=== PATIENT | female | born 1980 | race Caucasian/White ===

== ENCOUNTER → 2021-08-08 10:15 | Outpatient (CLI) | payer OTHER, SELFPAY ==
[2021-08-08 12:11] LABS: Lithium 0.4 mmol/L (0.6-1.2)
[2021-08-08 12:20] LABS: Alanine Aminotransferase 19 IU/L (<35); Albumin 4.5 g/dL (3.5-5.0); Albumin Globulin Ratio 1.5 (1.0-2.8); Alkaline Phosphatase 50 U/L (38-126); Aspartate Aminotransferase 25 IU/L (14-36); BUN Creatinine Ratio 11.1 (6-22); Bilirubin Total 0.4 mg/dL (0.2-1.3); Blood Urea Nitrogen 10 mg/dL (7-17); Carbon Dioxide 27 mmol/L (22-32); Chloride 105 mmol/L (98-107); Estimated Glomerular Filt Rate > 60.0 mL/min (>60); Globulin 3.1 g/dL (1.7-4.1); Glucose 91 mg/dL (70-100); HEMOLYSIS < 15 (0-50); Potassium 4.6 mmol/L (3.4-5.1); Sodium 137 mmol/L (137-145); Total Protein 7.6 g/dL (6.3-8.2)
== END ==
PROVIDERS: Referring Provider Psychiatry & Neurology Psychiatry; Visit Provider Psychiatry & Neurology Psychiatry
DX: F31.81 Bipolar II disorder (principal); F50.2 Bulimia nervosa; Z79.899 Other long term (current) drug therapy
CPT/HCPCS: 36415; 80053; 80178

== ENCOUNTER → 2021-10-17 12:06 | Outpatient (CLI) | payer OTHER, SELFPAY ==
[2021-10-17 14:03] LABS: Lithium 0.6 mmol/L (0.6-1.2)
== END ==
PROVIDERS: PCP Student in an Organized Health Care Education/Training Program; Referring Provider Psychiatry & Neurology Psychiatry; Visit Provider Psychiatry & Neurology Psychiatry
DX: F31.81 Bipolar II disorder (principal)
CPT/HCPCS: 36415; 80178

== ENCOUNTER → 2021-11-01 13:07 | Outpatient (CLI) | payer OTHER, SELFPAY ==
[2021-11-02 13:12] LABS: COVID19 -Nasal RAPID Negative (Negative)
== END ==
PROVIDERS: PCP Student in an Organized Health Care Education/Training Program; Visit Provider Obstetrics & Gynecology
DX: Z20.822 Contact with and (suspected) exposure to COVID-19 (principal)
CPT/HCPCS: 87635

== ENCOUNTER 2021-11-02 06:52 | Day surgery (SDC) | payer OTHER, SELFPAY ==
[2021-10-30 12:37] VITALS: BMI 32.9
[2021-11-02] VITALS (8 sets, daily range): BP systolic 106–121; BP diastolic 60–81; PULSE 65–84; RESP 12–16; TEMP 36.1–36.7; O2SAT 100; BMI 32.9
--- NOTE | 2021-11-02 | PATH_ITS ---
[facility] Accession Number: [id number] . 01 Material submitted: . PART A: endocervix - ENDOCERVICAL CURETTINGS PART B: endometrium - ENDOMETRIAL CURETTINGS . 02 Diagnosis: A. Endocervical Curettings: Portions of lower uterine segment / proliferative endometrium; negative for glandular hyperplasia, cytologic atypia, or malignancy. Small fragments of endocervical tissue; negative for glandular dysplasia or malignancy. . B. Endometrial Curettings: Portions of proliferative endometrium; negative for glandular hyperplasia, cytologic atypia, or malignancy. Some endometrial fragments demonstrate prominent vessels, suggestive of polyp, if clinical and imaging studies are concordant. [facility] 11/06/2021 1510 Local . 02 Electronically signed: . Nicole Dowling MD, Pathologist NPI- [id number] . 01 Gross description: . A. Received in formalin, labeled with patient's name, and endocervical curettings consists of multiple fragments of whaley to red-brown soft tissue admixed with mucoid material aggregating to 2.8 x 1.9 x 0.2 cm. The specimen is filtered into a biopsy bag and submitted entirely in cassette A1. B. Received in formalin, labeled with the patient's name, and endometrial curettings consists of multiple whaley to red-brown soft tissue fragments aggregating to 2.4 x 2.1 x 0.4 cm. The specimen is filtered into a biopsy bag and submitted entirely in cassette B1. ([id number]) /MRV 11/05/2021 1358 Local . 02 Pathologist provided ICD-10: N92.0 . 02 CPT . 221726, 593906 Specimen Comment: A courtesy copy of this report has been sent to [phone] Performed at: 01 [facility] [address] [place] [address], [place], [place] [id number] MD Jeffrey Garcia MD Phone: [phone] Performed at: 02 [facility] [address] [place], [place] [id number] MD Eliza Ng MD Phone: [phone]
[2021-11-02] MEDS: LACTATED RINGERS 1,000 ML 42 ML IV (07:33)
--- NOTE | 2021-11-02 07:38 | PM.PREOP ---
Pre-operative Note COVID-19 COVID-19 status: Negative Result date/Date tested (Pos, Neg/Pending): 11/02/21 Criteria for continued procedure: Non-surgical alternatives not available or appropriate per current SOC Interval Note History & Physical reviewed/Exam performed by Physician: Yes Changes to H&P: No
[2021-11-02] MEDS: ACETAMINOPHEN 325 MG TABLET 975 MG PO (07:39)
--- NOTE | 2021-11-02 07:40 | P.OP_ITS ---
Operative Date/Time/Diagnoses Date of procedure: 11/02/21 Time of procedure: 08:00 Post-op diagnosis: same Procedure & Clinicians Procedure: Procedures Operation Date: 11/02/21 07:45 Actual Procedure Side Surgeon p Hysteroscopy w/ poss. BX's, D&C, Endometrial Ablation (Novasure) Baldomero Evangelista MD Indications: Ivelisse is a 40-year-old A2, LMP August 29, 2021 who presents with a greater than 5 year history of progressively severe and painful periods.? Her periods typically last at least 5-7 days, are associated with flooding and accidents both during the day and at night, and require use of both tampons and nighttime pads during the daytime to minimize these episodes of overflows.? Treatment with naproxen has not been of any benefit.? Treatment with oral contraceptives x2 months was poorly tolerated due to exacerbation of her bipolar symptoms while on combination OCs.? Patient has declined use of a IUD in the past has no interest in a trial of progestin secreting IUD.? Contraception is by vasectomy performed January 2021.? Patient's last Pap was 2 or 3 weeks ago and she has been diagnosed with HPV based on her most recent Pap.? Patient was originally worked up for possible ablation in 2019 while they were living in [place] with endometrial biopsy at that time showing only secretory endometrium and pelvic ultrasound in 2018 showed a normal uterus, normal endometrial stripe, and normal adnexa.? A repeat ultrasound performed at [facility] on 08/22/2021 is also unremarkable with an endometrial stripe of 10 mm.? Pap smear performed in July 2021 is negative for cytologic abnormality but is positive for high-risk HPV.? After consideration of all options the patient has decided to proceed with performance of hysteroscopy with possible biopsies, dilation and curettage of the uterus, and endometrial ablation (NovaSure).? Patient presents today for her scheduled surgery. Surgeon: Baldomero Evangelista Anesthesia Type: General Operative Notes Findings: Normal endometrial cavity. Closure Type: not applicable Specimen(s): endometrial curettings and other (Endocervical curettings) Estimated blood loss (mL): 5 Blood products transfused: none Procedure in detail: With the patient under general LMA in the modified dorsal lithotomy position, the perineum, vagina, and lower abdomen were prepped and draped in the usual fashion for hysteroscopy with endometrial ablation. A pre-surgical safety time- out was then taken in accordance with [facility] Main OR protocols. A bivalve speculum was inserted in the vagina and the cervix visualized. The anterior lip of the cervix was grasped with a single-tooth tenaculum and the endocervical canal was then dilated to 6 mm diameter. Hysteroscope was placed through the endocervical canal into the endometrial cavity and the cavity was visualized. There were no localized abnormalities within the endometrial cavity and the endometrium itself was unremarkable. Both tubal ostia were visualized. The hysteroscope was then withdrawn and a fractional dilation and curettage was accomplished with separate pathologic specimen submitted for the endometrial and endocervical curettings. The uterine cavity was then sounded with the NovaSure device and found to be 6.0 cm in depth. The NovaSure device was then inserted through the endocervical canal into the endometrial cavity and the width of the cavity determined to be 4.7 cm. Cavity integrity test demonstrated the cavity to be intact and ablation was initiated. Ablation time was 60 seconds with power utilized 158 w. The NovaSure device was then removed from the endometrial cavity and hysteroscopy demonstrated excellent ablation effect. The tenaculum was then removed from the anterior lip of the cervix and no bleeding was encountered. The speculum was then removed from the vagina and the patient awakened from anesthesia. She was then transferred to the PACU for a period of observation and recovery having tolerated the procedure well. Complications: none Post-operative Condition: stable Disposition: PACU Plan for aftercare: Routine post-op care.
[2021-11-02] MEDS: APREPITANT 40 MG CAPSULE PO (07:49)
--- NOTE | 2021-11-02 07:57 | SUR.OPER ---
Lithotomy on padded OR bed, head on pillow, arms secured on padded arm boards at <90 degrees abduction. Legs secured in padded yellow fins stirrups.
[2021-11-02] MEDS: fentaNYL 100 MCG/2 ML INJ IV (08:44)
[2021-11-02] MEDS: KETOROLAC 30 MG/ML VIAL IV (08:46)
[2021-11-02] MEDS: HYDROMORPHONE 2 MG INJ IV (08:49)
[2021-11-02] MEDS: OXYCODONE IR 5 MG TABLET PO (08:57)
== END 2021-11-02 09:29 | disposition home or self-care (01) ==
PROVIDERS: PCP Student in an Organized Health Care Education/Training Program; Referring Provider Obstetrics & Gynecology; Visit Provider Obstetrics & Gynecology
PROC: 0U5B8ZZ Destruction of Endometrium, Via Natural or Artificial Opening Endoscopic (ICD-10-PCS; CPT 58563; principal; 2021-11-02 07:45)
DX: N94.6 Dysmenorrhea, unspecified (principal); N92.0 Excessive and frequent menstruation with regular cycle
CPT/HCPCS: 58563; 81025; J1100; J1170; J1885; J2250; J2405; J2704; J3010; J8501

== ENCOUNTER → 2022-01-11 11:44 | Outpatient (CLI) | payer OTHER, SELFPAY ==
[2022-01-11 12:54] LABS: COVID19 -Nasal RAPID Negative (Negative)
== END ==
PROVIDERS: PCP Student in an Organized Health Care Education/Training Program; Visit Provider Surgery
DX: Z01.812 Encounter for preprocedural laboratory examination (principal); Z20.822 Contact with and (suspected) exposure to COVID-19
CPT/HCPCS: 87635; C9803

== ENCOUNTER 2022-01-14 07:52 | Day surgery (SDC) | payer OTHER, SELFPAY ==
--- NOTE | 2022-01-14 | PATH_ITS ---
[facility] Accession Number: [id number] . 01 Material submitted: . colon - RANDOM COLON BIOPSIES . 01 Diagnosis: Random Colon Biopsies: Colonic mucosa with no diagnostic abnormality. Negative for active, chronic, and microscopic colitis. Negative for dysplasia and malignancy. . [facility] 01/15/2022 1243 Local . 01 Electronically signed: . Nicole Dowling MD, Pathologist NPI- [id number] . 01 Gross description: . RANDOM COLON BIOPSIES: Received in formalin are 2 fragment(s) of whaley, soft tissue measuring 0.1 x 0.1 x 0.1 cm in aggregate submitted entirely in 1 cassette(s) /ANTOINETTE 01/14/2022 1931 Local . 01 Pathologist provided ICD-10: K59.00 . 01 CPT . 233992 Specimen Comment: A courtesy copy of this report has been sent to [phone] Performed at: 01 [facility] [address] [place] [address], [place], [place] [id number] MD Jeffrey Garcia MD Phone: [phone]
[2022-01-14 08:42] VITALS: BP 113/79; PULSE 62; RESP 16; TEMP 36.8; O2SAT 100; BMI 31.1
[2022-01-14] MEDS: SODIUM CHLORIDE 0.9% 1,000 ML 84 ML IV (08:53)
--- NOTE | 2022-01-14 09:17 | PM.HP.1 ---
History of Present Illness History of Present Illness Date Patient Seen: 01/14/22 Time Patient Seen: 09:17 Chief complaint: SDC Narrative: I reviewed my note from October of this year no significant changes. Patient has not responded sufficiently to psyllium husk. She is using a ?green supplement with probiotics? and this is helping. Patient History Medical History Bipolar II disorder delivery delivered Kidney stones Menorrhagia with regular cycle PONV (postoperative nausea and vomiting) Premenstrual dysphoric disorder Surgical History S/P endometrial ablation Family & Social History Social History: household members spouse Tobacco & Substance use: Smoking Status Never smoker alcohol intake current alcohol intake frequency a few times a month Substance Use Type does not use Meds Home Medications and Allergies Home Medications Medication Instructions Recorded Confirmed Type multivitamin 1 cap PO DAILY 08/30/19 10/30/21 History quetiapine 25 mg tablet 75 mg PO BEDTIME #150 tabs 01/02/22 01/14/22 Rx levothyroxine 25 mcg tablet 50 mcg PO DAILY 01/14/22 01/14/22 History Allergies Allergy/AdvReac Type Severity Reaction Status Date / Time latex Allergy Intermediate itching Verified 01/14/22 08:38 Review of Systems Review of Systems ROS: Yes All systems reviewed with the patient and are negative except as otherwise documented Exam Vital Signs (past 8 hours): - 01/14/22 08:42 Temperature 98.2 F Pulse Rate 62 Respiratory Rate 16 Blood Pressure 113/79 Pulse Oximetry 100 Oxygen Delivery Method Room Air Oxygen Delivery Method Room Air Const General: cooperative HENMT Head: normal to inspection Eyes General: appearance normal, both eyes and all related structures Neck Neck: normal visual inspection Chest Chest: normal inspection of the chest Resp Effort & Inspection: normal respiratory effort Cardio Rate: regular rate GI Inspection: normal to inspection Skin General: no rashes or lesions noted Neuro General: patient alert and patient awake Extrem General: normal to inspection and no pedal edema Psych Appearance: grossly normal Assessment & Plan Assessment & Plan narrative: 41-year-old female with altered bowel habit in the setting of a family history of colon polyps and family history of inflammatory bowel disease. Colonoscopy is planned for today. Time Spent With Patient Critical Care time: I spent a total of [] minutes of critical care time on this patient's care today; this time is exclusive of procedural time.
--- NOTE | 2022-01-14 09:19 | PM.PREOP ---
Pre-operative Note COVID-19 COVID-19 status: Negative Result date/Date tested (Pos, Neg/Pending): 01/11/22 Criteria for continued procedure: Possibility delay results in more complex future surgery or treatment Interval Note History & Physical reviewed/Exam performed by Physician: Yes Changes to H&P: No ASA Class (for procedural sedation): II
[2022-01-14 10:22] VITALS: BP 103/71; PULSE 79; RESP 18; TEMP 36.8; O2SAT 98
--- NOTE | 2022-01-14 10:22 | PM.OP.COLON ---
Operative Date/Time/Diagnoses Date of procedure: 01/14/22 Time of procedure: 10:22 Pre-op diagnosis: Altered bowel habits constipation and diarrhea the history of colon polyps family history of inflammatory bowel disease Post-op diagnosis: same Procedure & Clinicians Study performed: Colonoscopy with biopsies. Same procedure as scheduled: Yes Indications: Altered bowel habits constipation and diarrhea the history of colon polyps family history of inflammatory bowel disease Surgeon: Shan Camacho Procedure Notes SCOAP/Timeout: Done Procedure in detail: After the risks and benefits were explained, written and verbal informed consent was obtained. The patient was brought into the procedure room and placed into the left lateral decubitus position. Please see nurse cancer registry coordinator notes for sedation details. Digital rectal examination was accomplished. The scope was introduced into the patient and advanced under direct visualization to the cecum as identified by the appendiceal orifice and ileocecal valve. The scope was slowly withdrawn to carefully examine the mucosa for any defects or lesions. Comprehensive imaging was accomplished throughout the rectum including the dentate line. The colon was decompressed, the scope was then removed from the patient who tolerated the procedure well. Adult colonoscope Bowel prep adequate Scope withdrawal time: 8 minutes Sedation minutes: 15 Complications: none Impression: There was no evidence of any proctitis. No colitis throughout. Random biopsies were acquired for exclusion of microscopic disease. The terminal ileum was interrogated and appeared visually normal. No polyps or mass lesions were appreciated throughout. Endoscopic diagnosis Visually normal colonoscopy and terminal ileoscopy Post-procedure Plan for aftercare: 1. Continue current supplementation with probiotic 2. Repeat colonoscopy 10 years time 3. Await histopathology Disposition: PACU
[2022-01-14 10:27] VITALS: BP 99/70; PULSE 81; RESP 17; TEMP 36.3; O2SAT 99
[2022-01-14 10:32] VITALS: BP 113/81; PULSE 71; RESP 16; TEMP 36.3; O2SAT 100
[2022-01-14 10:35] VITALS: BP 111/73; PULSE 65; RESP 18; TEMP 36.1; O2SAT 100
== END 2022-01-14 10:52 | disposition home or self-care (01) ==
PROVIDERS: PCP Student in an Organized Health Care Education/Training Program; Referring Provider Internal Medicine Gastroenterology; Visit Provider Internal Medicine Gastroenterology
PROC: 0DJD8ZZ Inspection of Lower Intestinal Tract, Via Natural or Artificial Opening Endoscopic (ICD-10-PCS; CPT 45378; principal; 2022-01-14 09:30)
DX: R19.7 Diarrhea, unspecified (principal); K59.00 Constipation, unspecified; Z86.010 Personal history of colon polyps
CPT/HCPCS: 45380; J2704

== ENCOUNTER → 2023-04-17 14:02 | Outpatient (CLI) | payer OTHER, SELFPAY ==
[2023-04-19 14:34] LABS: Candida species Negative (Negative); Gardnerella vaginalis Negative (Negative); Trichomoas vaginalis Negative (Negative)
== END ==
PROVIDERS: PCP Student in an Organized Health Care Education/Training Program; Visit Provider Obstetrics & Gynecology
DX: N89.8 Other specified noninflammatory disorders of vagina (principal)
CPT/HCPCS: 87480; 87510; 87660

== ENCOUNTER → 2023-05-26 13:35 | Outpatient (CLI) | payer OTHER, SELFPAY ==
[2023-05-28 14:06] LABS: Candida species Negative (Negative); Gardnerella vaginalis Positive (Negative); Trichomoas vaginalis Negative (Negative)
== END ==
PROVIDERS: PCP Student in an Organized Health Care Education/Training Program; Visit Provider Physician Assistant Medical
DX: N89.8 Other specified noninflammatory disorders of vagina (principal)
CPT/HCPCS: 87480; 87510; 87660